=== PATIENT | male | born 1995 | race Caucasian/White ===

== ENCOUNTER 2017-01-10 20:48 | Emergency (ER) | payer OTHER ==
[~2017-01-10] VITALS: Ht 177.8 cm; Wt 85.5 kg
[~2017-01-10 20:48] MED LIST: IBUP-1542 PO
[2017-01-10 20:51] VITALS: Ht 177.8 cm; Wt 85.5 kg
[2017-01-10] MEDS ORDERED: IBUP-1542 PO (22:03)
[2017-01-10] MEDS ORDERED: AMOX500C2 PO (22:04)
--- NOTE | 2017-01-10 23:33 | ERD ---
ER Documentation Chief Complaint Chief Complaint sore throat x 4 days HPI 21-year-old male patient with no significant past medical history presents to the ED complaining of sore throat that started 4 days ago and started to notice some white spots on his tonsils. Reports that it is painful when he eats however is still able to tolerate oral intake. Denies any fever, chills, nausea , vomiting, chest pain, shortness of breath, cough, rhinorrhea, abdominal pain, neck stiffness. Patient denies any sick contacts. Denies any change in phonation. ROS All systems reviewed and are negative except as per history of present illness. Medications Home Meds Active Scripts Amoxicillin* (Amoxicillin*) 500 Mg Cap, 500 MG PO BID for 10 Days, CAP Prov:FERNANDO PRITCHARD PA-C 01/10/17 Ibuprofen* (Motrin*) 600 Mg Tab, 600 MG PO Q6, #30 TAB Prov:FERNANDO PRITCHARD PA-C 01/10/17 Ibuprofen* (Motrin*) 600 Mg Tab, 600 MG PO Q6, #16 TAB Prov:GERSON BECK MD 01/09/15 Allergies Allergies: Coded Allergies: No Known Allergy (Unverified , 03/29/11) PMhx/Soc Medical and Surgical Hx: pt denies Medical Hx, pt denies Surgical Hx History of Surgery: No Anesthesia Reaction: No Hx Neurological Disorder: No Hx Respiratory Disorders: No Hx Cardiac Disorders: No Hx Psychiatric Problems: No Hx Miscellaneous Medical Probl: No Hx Alcohol Use: No Hx Substance Use: No Hx Tobacco Use: No Smoking Status: Never smoker Physical Exam Vitals Vital Signs Date Time Temp Pulse Resp B/P Pulse Ox O2 Delivery O2 Flow Rate FiO2 01/10/17 20:51 97.7 69 20 144/75 100 Physical Exam Const: Pte-grz-hmyajgfyn, well-nourished. In no acute distress. Head: Atraumatic, normocephalic Eyes: Normal Conjunctiva without injection. No purulent discharge. PERRL. EOMI ENT: Normal external ear. Ear canal without erythema. Tympanic membrane pearly farah without effusion or bulging. Nasal canal clear with normal turbinates. Moist oropharynx with bilateral tonsillar exudates. Erythematous pharynx. Uvula midline. No drooling. No trismus. Neck: Full range of motion. No meningismus. No cervical lymphadenopathy. Resp: Clear to auscultation bilaterally. No wheezing, rhonchi, rales, or crackles. No accessory muscle use. No retractions. Cardio: Regular rate and rhythm. No murmurs, rubs or gallops. Abd: Soft, non tender, non distended. Normal bowel sounds. No palpable masses. No rebound tenderness. No guarding. Skin: No petechiae or rashes Back: No midline tenderness. No CVA tenderness. Ext: No cyanosis, or edema. Neur: Awake and alert. Psych: Normal Mood and Affect Procedures/MDM 21-year-old male patient with no significant past medical history presents to the ED complaining of sore throat and white spots on the back of his tonsils that he noticed 4 days ago. Patient is afebrile nontoxic appearing. Patient's physical exam is consistent with presumed strep pharyngitis. Based on [employer] Criteria, patient has reported fever at home, exudates on tonsils, no cough. Patient is appropriate for outpatient antibiotics. Patient's physical exam include lungs which were clear to auscultation and a normal pulse oximetry. Bilateral ears pearly espitia. No tenderness to palpation of tragus or mastoid. Low suspicion for mastoiditis, otitis externa, otitis media. Patient is speaking in full sentences. There is a low suspicion for pneumonia, epiglottitis , sinusitis, peritonsillar abscess, hands foot mouth disease, scarlet fever, Kawasaki disease, Alfonso's angina, retropharyngeal abscess, meningitis, sepsis, acute abdomen or other emergent conditions. Discharge medications: Amoxicillin, Ibuprofen Follow up with primary care physician in 1-2 days. Instructed patient to return to the ED sooner for any worsening symptoms. Patient's questions were answered. Patient understood and agreed with discharge plan. Patient discharged stable. Departure Diagnosis: Primary Impression: Sore throat Condition: Stable Patient Instructions: Pharyngitis, Strep (Presumed) Referrals: [facility] YOU HAVE RECEIVED A MEDICAL SCREENING EXAM AND THE RESULTS INDICATE THAT YOU DO NOT HAVE A CONDITION THAT REQUIRES URGENT TREATMENT IN THE EMERGENCY DEPARTMENT. FURTHER EVALUATION AND TREATMENT OF YOUR CONDITION CAN WAIT UNTIL YOU ARE SEEN IN YOUR DOCTORS OFFICE WITHIN THE NEXT 1-2 DAYS. IT IS YOUR RESPONSIBILITY TO MAKE AN APPOINTMENT FOR FOLOW-UP CARE. IF YOU HAVE A PRIMARY DOCTOR --you should call your primary doctor and schedule an appointment IF YOU DO NOT HAVE A PRIMARY DOCTOR YOU CAN CALL OUR PHYSICIAN REFERRAL HOTLINE AT IF YOU CAN NOT AFFORD TO SEE A PHYSICIAN YOU CAN CHOSE FROM THE FOLLOWING [facility] [address] [facility] [address] [facility] [address] [facility] [address] [facility] [address] [facility] [facility] [address] [facility]. [facility] YOU HAVE RECEIVED A MEDICAL SCREENING EXAM AND THE RESULTS INDICATE THAT YOU DO NOT HAVE A CONDITION THAT REQUIRES URGENT TREATMENT IN THE EMERGENCY DEPARTMENT. FURTHER EVALUATION AND TREATMENT OF YOUR CONDITION CAN WAIT UNTIL YOU ARE SEEN IN YOUR DOCTORS OFFICE WITHIN THE NEXT 1-2 DAYS. IT IS YOUR RESPONSIBILITY TO MAKE AN APPOINTMENT FOR FOLOW-UP CARE. IF YOU HAVE A PRIMARY DOCTOR --you should call your primary doctor and schedule and appointment IF YOU DO NOT HAVE A PRIMARY DOCTOR YOU CAN CALL OUR PHYSICIAN REFERRAL HOTLINE AT . IF YOU CAN NOT AFFORD TO SEE A PHYSICIAN YOU CAN CHOSE FROM THE FOLLOWING [facility]: [facility] [address] [place] [address] [facility] [address] [place] [address] [facility] [address] [place] [address] [facility] Additional Instructions: Call your primary care doctor TOMORROW for an appointment during the next 2-3 days.See the doctor sooner or return here if your condition worsens before your appointment time. FERNANOD PRITCHARD PA-C Jan 10, 2017 23:33
== END 2017-01-10 22:18 | disposition home or self-care (01) ==
LOC: FTE 20:48
DX: J02.9 Acute pharyngitis, unspecified (principal)
CPT/HCPCS: 99283

== ENCOUNTER 2017-07-06 19:24 | Emergency (ER) | END 2017-07-06 22:12 | disposition home or self-care (01) ==

== ENCOUNTER 2018-01-01 21:19 | Emergency (ER) | END 2018-01-01 22:30 | disposition home or self-care (01) ==

== ENCOUNTER 2018-05-03 13:34 | Emergency (ER) | payer OTHER ==
[~2018-05-03] VITALS: Wt 90.0 kg
[~2018-05-03 13:34] MED LIST changes: +ACET325T33 PO; +AMOX500C2 PO; +IBUP800T48 PO; +NAPR-985 PO
[2018-05-03 13:42] VITALS: BP 155/68; PULSE 100; RESP 20
[2018-05-03] MEDS ORDERED: HYDROCODONE/APAP (5/325) TAB PO ONE (15:30)
[2018-05-03] MEDS ORDERED: IBUPROFEN 600 MG TAB PO ONE (15:30)
[2018-05-03] MEDS ORDERED: IBUP-1542 PO (16:15)
--- NOTE | 2018-05-03 16:18 | ERD ---
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 NO DEFORMITY HPI 22-year-old male presents with sudden onset right knee pain while running today. Denies any ocular movements are stepping in a hole or tripping. The pain is on the right anterior lateral area of his knee. Denies any previous knee problems. Denies any calf swelling, shortness of breath, fevers. ROS All systems reviewed and are negative except as per history of present illness. Medications Home Meds Active Scripts Ibuprofen* (Motrin*) 600 Mg Tab, 600 MG PO Q6, #20 TAB Prov:GERSON BECK MD 05/03/18 Naproxen* (Naprosyn*) 500 Mg Tablet, 500 MG PO BID PRN for PAIN AND/OR INFLAMMATION, #30 TAB Prov:PUSHPA FENG PA-C 01/01/18 Acetaminophen* (Tylenol*) 325 Mg Tablet, 2 TAB PO Q6 PRN for PAIN AND OR ELEVATED TEMP, #20 TAB Prov:PUSHPA FENG PA-C 07/06/17 Ibuprofen* (Motrin*) 800 Mg Tab, 800 MG PO Q6, #30 TAB Prov:PUSHPA FENG PA-C 07/06/17 Amoxicillin* (Amoxicillin*) 500 Mg Cap, 500 MG PO BID for 10 Days, CAP Prov:FERNANDO PRITCHARD PA-C 01/10/17 Ibuprofen* (Motrin*) 600 Mg Tab, 600 MG PO Q6, #30 TAB Prov:FERNANDO PRITCHARD PA-C 01/10/17 Ibuprofen* (Motrin*) 600 Mg Tab, 600 MG PO Q6, #16 TAB Prov:GERSON BECK MD 01/09/15 Allergies Allergies: Coded Allergies: No Known Allergy (Unverified , 03/29/11) PMhx/Soc Medical and Surgical Hx: pt denies Medical Hx, pt denies Surgical Hx History of Surgery: No Anesthesia Reaction: No Hx Neurological Disorder: No Hx Respiratory Disorders: No Hx Cardiac Disorders: No Hx Psychiatric Problems: No Hx Miscellaneous Medical Probl: No Hx Alcohol Use: No Hx Substance Use: No Hx Tobacco Use: No Smoking Status: Never smoker FmHx Family History: No diabetes, No coronary disease, No other Physical Exam Vitals Vital Signs Date Temp Pulse Resp B/P (MAP) Pulse Ox O2 O2 Flow FiO2 Time Delivery Rate 05/03/18 97.8 100 20 155/68 98 13:42 (97) Physical Exam Const: No acute distress Head: Atraumatic Eyes: Normal Conjunctiva ENT: Normal External Ears, Nose and Mouth. Neck: Full range of motion. No meningismus. Resp: Clear to auscultation bilaterally Cardio: Regular rate and rhythm, no murmurs Abd: Soft, non tender, non distended. Normal bowel sounds Skin: No petechiae or rashes Back: No midline or flank tenderness Ext: No cyanosis, or edema. Tenderness of the right anterior lateral knee joint area. No deformities. No calf swelling or Homans sign. No gross instability. No restricted range of motion or deficits. Neur: Awake and alert Psych: Normal Mood and Affect Results 24 hrs Current Medications Medications Dose Sig/[place] Start Time Status Last (Trade) Ordered Route PRN Stop Time Admin Dose Reason Admin Ibuprofen 600 mg ONCE ONCE 05/03/18 DC 05/03/18 (Motrin) PO 15:30 15:09 05/03/18 15:31 1 tab ONCE ONCE 05/03/18 DC 05/03/18 Acetaminophen PO 15:30 15:09 / 05/03/18 15:31 Hydrocodone Bitart ([place] (5/325)) Procedures/MDM X-ray right knee 3V Interpreted by me: Bones: No fracture Joints: No dislocation Foreign body: None. Impression-normal right knee x-ray Patient presents with sudden onset of right knee pain while running today. There is no evidence of fracture, dislocation, signs of DVT, ischemia, deficits, infection. He likely has ligamentous injury or sprain. He was placed in a right knee immobilizer was neurovascular intact after knee immobilizer. Patient was also given crutches with crutch training. She will be discharged home with orthopedic follow-up within the next week for persistent pain. Return sooner for fevers, redness, new worsening symptoms. Patient was advised he may need authorization from primary doctor for orthopedist visit. Departure Diagnosis: Primary Impression: Knee injury Encounter type: initial encounter Laterality: right Qualified Codes: S89.91XA - Unspecified injury of right lower leg, initial encounter Condition: Stable Patient Instructions: Knee Sprain Referrals: [facility] (PCP) ANDREA GARCIA MD Additional Instructions: X-ray read as normal. Likely sprain or possible ligament injury. See orthopedist for further motion treatment for persistent pain next week. May need authorization from primary doctor for orthopedist visit. Recheck sooner for fevers, redness, new worsening symptoms. GERSON BECK MD May 03, 2018 16:18
== END 2018-05-03 16:26 | disposition home or self-care (01) ==
LOC: FTE 13:34
DX: S89.91XA Unspecified injury of right lower leg, initial encounter (principal); W18.30XA Fall on same level, unspecified, initial encounter; Y92.9 Unspecified place or not applicable
CPT/HCPCS: 73562